=== PATIENT | male | born 1985 | race African-American/Black ===

== ENCOUNTER 2016-07-30 21:58 | Observation (INO) | payer SELFPAY ==
[~2016-07-30] VITALS: Ht 195.6 cm; Wt 81.2 kg
[~2016-07-30 21:58] MED LIST: BENTYL10 MG PO; ZOFRAN4 MG PO
[2016-07-30 22:18] LABS: HEMATOCRIT 42.5 % (38.0-50.0); MCH 26.5 PG (29.0-34.0); MCHC 32.5 G/DL (30.0-36.0); MCV 81.6 FL (86-99); MEAN PLAT.VOLUME 10.8 uM^3 (9.0-12.4); PLATELET COUNT 280 K/uL (156-360); RBC DIS.WIDTH-CV 13.2 % (11.8-14.6); RBC DIS.WIDTH-SD 39.1 % (39-53); RED BLOOD COUNT 5.21 M/uL (4.00-5.50); WHITE BLOOD COUNT 8.8 K/uL (4.1-10.2)
[2016-07-30 22:19] LABS: CREATININE 0.7 mg/dL (0.6-1.3); POTASSIUM 4.2 mEq/L (3.7-5.4)
[2016-07-30 22:27] LABS: CHLORIDE 110 mEq/L (99-109); POTASSIUM 4.2 mEq/L (3.7-5.4); SODIUM 144 mEq/L (136-147)
[2016-07-30 22:29] LABS: GLUCOSE 91 mg/dL (70-99)
[2016-07-30 22:30] LABS: ANION GAP 11 MEQ/L (2-14)
[2016-07-30 22:31] LABS: TOTAL BILIRUBIN 1.4 mg/dL (0.0-1.0)
[2016-07-30 22:33] LABS: ALKALINE PHOSPHATASE 141 IU/L (3-129); GFR ESTIMATE (CALCULATED) > 59 mL/min/
[2016-07-30 22:34] LABS: UREA NITROGEN (BUN) 12 mg/dL (9-23)
[2016-07-30 22:35] LABS: DIRECT BILIRUBIN 0.5 mg/dL (0.0-0.3)
[2016-07-30 22:36] LABS: LIPASE 17 U/L (1.0-51.0)
[2016-07-30 22:42] LABS: TROP-I INTERPRETATION NEGATIVE; TROPONIN-I < 0.01 ng/mL (0.0-0.30)
[2016-07-31 00:04] LABS: INFLUENZA A VIRAL ANTIGEN NEGATIVE; INFLUENZA B VIRAL ANTIGEN NEGATIVE
[2016-07-31 00:27] LABS: ADD MIUA? NO; BILIRUBIN NEGATIVE; BLOOD NEGATIVE; COLOR YELLOW ((YELLOW)); GLUCOSE (STRIP) NEGATIVE; KETONES 5; LEUKOCYTES NEGATIVE; NITRITE NEGATIVE; PROTEIN (STRIP) NEGATIVE; SPECIFIC GRAVITY 1.027 (1.000-1.030); UCUL ADDED? NO
[2016-07-31 03:41] LABS: ADD MEDTOX COMMENT Y; AMPHETAMINE NEGATIVE (500 ng/mL); BARBITURATES NEGATIVE (200 ng/mL); BENZODIAZEPINES NEGATIVE (150 ng/mL); COCAINE NEGATIVE (150 ng/mL); INTERNAL CONTROLS VALID? YES; METHADONE NEGATIVE (200 ng/mL); METHAMPHETAMINE NEGATIVE (500 ng/mL); OPIATES (MORPHINE) PRESUMPTIVE POSITIVE (100 ng/mL); OXYCODONE NEGATIVE (100 ng/mL); PHENCYCLIDINE NEGATIVE (25 ng/mL); PROPOXYPHENE NEGATIVE (300 ng/mL); THC CANNABINOIDS NEGATIVE (50 ng/mL); TRICYCLIC ANTIDEPRESSANTS NEGATIVE (300 ng/mL)
[2016-07-31 03:47] LABS: SERUM ETHYL ALCOHOL < 10 mg/dL
[2016-07-31 03:59] VITALS: BP 126/77
[2016-07-31 08:05] VITALS: BP 139/74
[2016-07-31 08:23] VITALS: BP 198/88
[2016-07-31 11:14] LABS: TROP-I INTERPRETATION NEGATIVE; TROPONIN-I < 0.01 ng/mL (0.0-0.30)
[2016-07-31 12:30] VITALS: BP 138/75
== END 2016-07-31 14:22 | disposition left against medical advice (07) ==
LOC: EME 21:58 → EDOF 07-31 02:20 → 5WEST 07-31 03:40
PROVIDERS: Emergency Medicine; Physician Assistant Medical
DX: R07.89 Other chest pain (principal); R94.31 Abnormal electrocardiogram [ECG] [EKG]; R01.1 Cardiac murmur, unspecified; R10.13 Epigastric pain; R11.2 Nausea with vomiting, unspecified; R19.7 Diarrhea, unspecified; E05.90 Thyrotoxicosis, unspecified without thyrotoxic crisis or storm; Z91.19 Patient's noncompliance with other medical treatment and regimen; Z59.0 Homelessness; F17.200 Nicotine dependence, unspecified, uncomplicated; F10.10 Alcohol abuse, uncomplicated
CPT/HCPCS: 71020; 74177; 80047; 80048; 80076; 80306 90; 81003; 83605; 83690; 84439; 84443; 84484; 84999; 85027; 87502; 93005; 99281; 99285; G0378; G0480; J2270; J2405; J2765; J7030; S0028

== ENCOUNTER 2016-08-02 19:42 | Emergency (ER) | payer SELFPAY ==
[~2016-08-02] VITALS: Ht 195.6 cm; Wt 80.9 kg
[2016-08-02 20:23] LABS: HEMATOCRIT 52.9 % (38.0-50.0); MCH 26.6 PG (29.0-34.0); MCHC 33.6 G/DL (30.0-36.0); PLATELET COUNT 334 K/uL (156-360); RBC DIS.WIDTH-CV 12.9 % (11.8-14.6); RBC DIS.WIDTH-SD 36.1 % (39-53); WHITE BLOOD COUNT 9.7 K/uL (4.1-10.2)
[2016-08-02 20:30] LABS: CHLORIDE 108 mEq/L (99-109); POTASSIUM 3.7 mEq/L (3.7-5.4); SODIUM 140 mEq/L (136-147)
[2016-08-02 20:32] LABS: GLUCOSE 99 mg/dL (70-99)
[2016-08-02 20:34] LABS: ANION GAP 11 MEQ/L (2-14)
[2016-08-02 20:36] LABS: GFR ESTIMATE (CALCULATED) > 59 mL/min/
[2016-08-02 20:37] LABS: UREA NITROGEN (BUN) 14 mg/dL (9-23)
[2016-08-02 21:55] LABS: C DIFF TOXIN NEGATIVE (NEGATIVE)
[2016-08-02 22:00] LABS: PROBE CHECK PASS; SPECIMEN PROCESSING CONTROL PASS
[2016-08-02] MEDS ORDERED: PROPRANOLOL HCL10 MG PO (22:06)
[2016-08-02] MEDS ORDERED: HYDROCODON-ACE1 EAC7 PO (22:06)
[2016-08-02] MEDS ORDERED: PROMETHAZINE HC25 M1 PO (22:06)
[2016-08-02 22:22] VITALS: BP 142/85
== END 2016-08-02 22:25 | disposition home or self-care (01) ==
LOC: EME 19:42
PROVIDERS: Emergency Medicine
DX: R19.7 Diarrhea, unspecified (principal); E05.90 Thyrotoxicosis, unspecified without thyrotoxic crisis or storm; R10.13 Epigastric pain
CPT/HCPCS: 80048; 85027; 87493; 99281; 99285; J2270; J2405; J3010; J7030; Q0169; S0028